=== PATIENT | female | born 1950 | race Caucasian/White ===

== ENCOUNTER 2018-03-12 09:42 | Emergency (ER) | payer OTHER ==
[~2018-03-12] VITALS: Ht 160 cm; Wt 114.3 kg
[2018-03-12] MEDS ORDERED: ASPIR 8181 MG PO (09:50)
[2018-03-12] MEDS ORDERED: COZAAR 25 MG TA25 M1 PO (09:51)
[2018-03-12] MEDS ORDERED: HYDROCHLOROTH12.5 M1 PO (09:51)
[2018-03-12] MEDS ORDERED: GLUCOPHAGE1000 MG PO (09:51)
[2018-03-12] MEDS ORDERED: UNICOMPLEX M TA1 TA1 PO (09:51)
[2018-03-12] MEDS ORDERED: ATORVASTATIN CA40 MG PO (09:51)
[2018-03-12] MEDS ORDERED: VITAMIN E400 UNIT PO (09:52)
[2018-03-12 10:02] LABS: ABSOLUTE EOSINOPHILS 0.2 thou/uL (0.0-0.7); ABSOLUTE LYMPHOCYTES 2.4 thou/uL (0.8-5.3); ABSOLUTE MONOCYTES 0.7 thou/uL (0.0-1.2); ABSOLUTE NEUTROPHILS 5.1 thou/uL (1.6-8.1); BASOPHILS 0.5 %; EOSINOPHILS 2.3 %; HEMATOCRIT 41.3 % (37.0-47.0); HEMOGLOBIN 13.8 gm/dL (12.0-15.0); LYMPHOCYTES 28.7 %; MCH 30.8 pg (26.0-34.0); MCHC 33.5 g/dL (28.0-37.0); MONOCYTES 8.5 %; MPV 8.4 fl. (7.2-11.1); NUCLEATED RBCS 0 /100WBC; PLATELET COUNT* 214 thou/uL (150-400); RBC 4.49 mil/uL (4.20-5.00); RDW-CV 13.4 % (10.5-14.5); WBC 8.5 thou/uL (4.0-11.0)
[2018-03-12 10:12] LABS: ANION GAP 9 mmol/L (7-16); BUN 16 mg/dL (7-18); CALCIUM 9.6 mg/dL (8.5-10.1); CHLORIDE 104 mmol/L (98-107); CO2 29 mmol/L (21-32); CREATININE 0.7 mg/dL (0.6-1.3); GLUCOSE 109 mg/dL (70-99); POTASSIUM 3.8 mmol/L (3.5-5.1); SODIUM 142 mmol/L (136-145)
[2018-03-12 10:14] LABS: APTT 25.4 Seconds (25.0-31.3)
[2018-03-12 10:32] LABS: ALBUMIN 3.6 g/dL (3.4-5.0); ALKALINE PHOSPHATASE 74 U/L (46-116); CK-MB MASS 1.3 ng/mL (<0.5-3.6); LIPASE 761 U/L (73-393); MAGNESIUM 1.8 mg/dL (1.8-2.4); NT-PRO BRAIN NAT PEPTIDE 419 pg/mL (<300); SGOT 17 U/L (15-37); SGPT 20 U/L (30-65); TOTAL BILIRUBIN 0.7 mg/dL (<0.1-1.0); TROPONIN-I LEVEL <0.06 ng/mL (<0.06)
[2018-03-12 11:10] VITALS: BP 163/68
--- NOTE | 2018-03-12 16:36 | EKG ---
[place] [address] ELECTROCARDIOGRAM REPORT Name: JIN WALDEN Room: [facility]#: [id number] Admission: 03/12/18 Attend Phys: Discharge: 03/12/18 Date of : 48 Report #: [id number] THIS REPORT FOR: //name// [facility] ED Test Date: 2018-03-12 Test Time: 09:47:13 Pat Name: JIN WALDEN Department: Room: Gender: F Oil Changer: Michael HENRIQUEZ : 1950 Requested By: John Johnson Order Number: [id number] MD: Swapnil Gil Measurements Intervals Bryan Rate: 77 P: 49 RI: 160 QRS: 8 QRSD: 93 T: 12 QT: 420 QTc: 476 Interpretive Statements Sinus rhythm Ventricular trigeminy Probable left atrial enlargement Borderline T abnormalities, anterior leads No previous ECG available for comparison Electronically Signed On 03-12-2018 16:36:10 DIE CUTTING MACHINE OPERATOR by Swapnil Gil [email or web address] <ELECTRONICALLY SIGNED> By: Swapnil Gil MD, [facility] 03/12/18 1636 D: 12/946 6 Swapnil Gil MD, FACC /EPI
== END 2018-03-12 11:10 | disposition home or self-care (01) ==
LOC: M.ERS 09:42
PROVIDERS: Family Medicine
DX: R07.89 Other chest pain (principal); I10 Essential (primary) hypertension